=== PATIENT | male | born 1950 | race Caucasian/White ===

== ENCOUNTER 2018-06-26 16:08 | Inpatient (IN) | payer MEDICAID ==
[2018-06-26 18:06] LABS: ADD MAN DIFF? NO
[2018-06-26 18:10] LABS: WHITE BLOOD COUNT 9.4 10^3/ul (4.8-10.8)
[2018-06-26 18:10] LABS: BASOPHILS % 0.3 % (0.0-2.0); EOSINOPHILS # 0.2 10^3/ul (0.0-0.5); EOSINOPHILS % 1.6 % (0.0-7.0); HEMOGLOBIN 13.9 g/dl (14.0-18.0); LYMPHOCYTES # 1.9 10^3/ul (0.8-2.9); LYMPHOCYTES % 20.2 % (15.0-51.0); MEAN CORPUSCULAR HEMOGLOBIN 28.9 pg (29.0-33.0); MEAN CORPUSCULAR HGB CONC 34.8 g/dl (32.0-37.0); MEAN CORPUSCULAR VOLUME 83.2 fl (82.0-101.0); MONOCYTE # 0.9 10^3/ul (0.3-0.9); MONOCYTES % 9.6 % (0.0-11.0); NEUTROPHIL # 6.4 10^3/ul (1.6-7.5); PLATELET COUNT 191 10^3/UL (140-415); RED BLOOD COUNT 4.81 10^6/ul (4.70-6.10); RED CELL DISTRIBUTION WIDTH 11.7 % (11.5-14.5)
[2018-06-26 18:20] LABS: ALANINE AMINOTRANSFERASE 23 IU/L (13-69); ALBUMIN/GLOBULIN RATIO 1.14; ALKALINE PHOSPHATASE 150 IU/L (42-121); ANION GAP 9 (5-13); ASPARTATE AMINO TRANSFERASE 29 IU/L (15-46); BILIRUBIN,INDIRECT 0.1 mg/dl (0-1.1); BILIRUBIN,TOTAL 0.1 mg/dl (0.2-1.3); BLOOD UREA NITROGEN 24 mg/dl (7-20); CALCIUM 9.5 mg/dl (8.4-10.2); CARBON DIOXIDE 27 mmol/L (21-31); CHLORIDE 95 mmol/L (97-110); CREATININE 0.92 mg/dl (0.61-1.24); Estimated GFR > 60 mL/min (>60); POTASSIUM 4.4 mmol/L (3.5-5.1); SODIUM 131 mmol/L (135-144); TOTAL PROTEIN 7.5 g/dl (6.1-8.1)
[2018-06-26 18:35] LABS: C-REACTIVE PROTEIN 2.3 mg/dl (0.0-0.9)
[2018-06-26 18:39] LABS: GLUCOSE 452 mg/dl (70-220)
[2018-06-26] MEDS ORDERED: INSULIN REGULAR, HUMAN 100 UNIT/1 ML 3ML VIAL IVP (18:40)
[2018-06-26 18:42] LABS: INR 0.87; PROTIME 11.9 Sec (11.9-14.9); PT RATIO 0.9
[2018-06-26 18:43] LABS: PARTIAL THROMBOPLASTIN TIME 22.5 Sec (23.0-35.0)
[2018-06-26] MEDS ORDERED: DEXTROSE 50% 50 ML SYRINGE IV (19:00)
[2018-06-26 19:15] LABS: ERYTHROCYTE SEDIMENTATION RATE 50 mm/Hr (0-20)
[2018-06-26] MEDS: SOD CHLORIDE 0.9% 1,000 ML IV (19:24)
[2018-06-26] MEDS: INSULIN REGULAR, HUMAN 100 UNIT/1 ML 3ML VIAL SC (19:27)
[2018-06-26] MEDS: CEFEPIME 2GM/50 ML (PMX) 50 ML IVPB (22:08)
[2018-06-26 22:30] LABS: LACTIC ACID 1.1 mmol/L (0.5-2.0)
[2018-06-26] MEDS: VANCOMYCIN 1 GM (PMX) 250 ML IVPB (22:39)
[2018-06-27] MEDS ORDERED: ACETAMINOPHEN 325 MG TAB PO
[2018-06-27] MEDS ORDERED: ONDANSETRON 4 MG INJ IV
[2018-06-27] MEDS: hydrALAzine 20 MG INJ IV ×2 (03:57→21:53)
[2018-06-27] MEDS ORDERED: GLUCAGON 1 MG INJ IM (04:30)
[2018-06-27] MEDS ORDERED: DEXTROSE 50% 50 ML SYRINGE IV ×2 (04:30)
[2018-06-27] MEDS ORDERED: GLUCOSE GEL 15 GRAM TUBE PO ×2 (04:30)
[2018-06-27] MEDS ORDERED: GLUCOSE GEL 15 GRAM TUBE BUCCAL (04:30)
[2018-06-27] MEDS ORDERED: NACL 0.9% 3 ML SYG IV (04:30)
[2018-06-27] MEDS ORDERED: VANCOMYCIN IV PER PHARMACY XX (04:30)
[2018-06-27] MEDS: SOD CHLORIDE 0.9% 1,000 ML IV (05:07)
[2018-06-27 06:20] LABS: ADD MAN DIFF? NO
[2018-06-27 06:33] LABS: BASOPHILS % 0.5 % (0.0-2.0); EOSINOPHILS # 0.2 10^3/ul (0.0-0.5); EOSINOPHILS % 2.4 % (0.0-7.0); HEMATOCRIT 35.3 % (42.0-52.0); HEMOGLOBIN 12.3 g/dl (14.0-18.0); LYMPHOCYTES # 1.9 10^3/ul (0.8-2.9); LYMPHOCYTES % 21.7 % (15.0-51.0); MEAN CORPUSCULAR HEMOGLOBIN 29.1 pg (29.0-33.0); MEAN CORPUSCULAR HGB CONC 34.8 g/dl (32.0-37.0); MEAN CORPUSCULAR VOLUME 83.5 fl (82.0-101.0); MEAN PLATELET VOLUME 11.8 fl (7.4-10.4); MONOCYTE # 0.8 10^3/ul (0.3-0.9); MONOCYTES % 9.1 % (0.0-11.0); NEUTROPHIL # 5.7 10^3/ul (1.6-7.5); NEUTROPHILS % 65.8 % (39.0-77.0); PLATELET COUNT 156 10^3/UL (140-415); RED BLOOD COUNT 4.23 10^6/ul (4.70-6.10); RED CELL DISTRIBUTION WIDTH 11.7 % (11.5-14.5)
[2018-06-27 06:33] LABS: WHITE BLOOD COUNT 8.6 10^3/ul (4.8-10.8)
[2018-06-27 07:08] LABS: ALANINE AMINOTRANSFERASE 27 IU/L (13-69); ALBUMIN/GLOBULIN RATIO 0.96; ALKALINE PHOSPHATASE 75 IU/L (42-121); ANION GAP 9 (5-13); ASPARTATE AMINO TRANSFERASE 18 IU/L (15-46); BILIRUBIN,INDIRECT 0.3 mg/dl (0-1.1); BILIRUBIN,TOTAL 0.3 mg/dl (0.2-1.3); BLOOD UREA NITROGEN 17 mg/dl (7-20); CALCIUM 8.6 mg/dl (8.4-10.2); CARBON DIOXIDE 28 mmol/L (21-31); CHLORIDE 98 mmol/L (97-110); CHOLESTEROL 131 mg/dl (100-200); CREATININE 0.89 mg/dl (0.61-1.24); Estimated GFR > 60 mL/min (>60); GLUCOSE 310 mg/dl (70-220); HDL CHOLESTEROL 26 mg/dl (30-78); LDL CHOLESTEROL,CALCULATED 80 mg/dl; MAGNESIUM 1.4 mg/dl (1.7-2.5); POTASSIUM 3.9 mmol/L (3.5-5.1); SODIUM 135 mmol/L (135-144); TOTAL PROTEIN 6.1 g/dl (6.1-8.1); TRIGLYCERIDES 123 mg/dl (0-149)
[2018-06-27] MEDS: INSULIN ASPART [NOVOLOG] 3 ML PEN SC ×4 (08:00→20:48)
[2018-06-27] MEDS: CEFEPIME 1GM/50 ML (PMX) 50 ML IVPB ×2 (08:18→20:48)
[2018-06-27] MEDS: VANCOMYCIN 1 GM 250 ML IVPB ×2 (10:08→21:51)
[2018-06-27] MEDS: ACCU-CHEK XX ×3 (11:30→20:48)
[2018-06-27 12:25] LABS: HEMOGLOBIN A1C 11.9 % (0-5.9)
[2018-06-27] MEDS: NATEGLINIDE 120 MG TAB PO ×2 (12:31→17:29)
[2018-06-27] MEDS: metFORMIN 850 MG TAB PO ×2 (12:31→17:28)
[2018-06-28] MEDS ORDERED: traZODone 50 MG TAB PO (00:40)
[2018-06-28] MEDS: ACCU-CHEK XX ×5 (02:00→21:06)
[2018-06-28] MEDS: NATEGLINIDE 120 MG TAB PO ×3 (08:09→17:40)
[2018-06-28] MEDS: GENTAMICIN 0.1% 15 GM OINT TOP (08:09)
[2018-06-28] MEDS: SODIUM HYPOCHLORITE (1/40) 1 APPLIC BTL IRR (08:09)
[2018-06-28] MEDS: metFORMIN 850 MG TAB PO ×2 (08:09→17:40)
[2018-06-28] MEDS: CEFEPIME 1GM/50 ML (PMX) 50 ML IVPB ×2 (08:09→21:03)
[2018-06-28] MEDS: INSULIN ASPART [NOVOLOG] 3 ML PEN SC ×4 (08:11→21:00)
[2018-06-28 09:35] LABS: VANCOMYCIN,TROUGH 9.4 ug/ml (10.0-20.0)
[2018-06-28] MEDS: VANCOMYCIN 1 GM 250 ML IVPB (09:56)
[2018-06-28] MEDS: LISINOPRIL 10 MG TAB PO (09:57)
[2018-06-28] MEDS ORDERED: SOD CHLORIDE 0.45% 1,000 ML IV (10:00)
[2018-06-28] MEDS: HYDROCODONE/APAP (5/325) TAB PO ×2 (10:09→21:42)
[2018-06-28] MEDS: ATORVASTATIN 10 MG TAB PO (21:06)
[2018-06-28] MEDS: VANCOMYCIN HCL 1.25 GM in SOD CHLORIDE 0.9% 250 ML IVPB (21:42)
[2018-06-29] MEDS: ACCU-CHEK XX ×5 (02:00→20:20)
[2018-06-29 06:01] LABS: ADD MAN DIFF? NO
[2018-06-29 06:04] LABS: BASOPHILS % 0.4 % (0.0-2.0); EOSINOPHILS # 0.3 10^3/ul (0.0-0.5); EOSINOPHILS % 3.3 % (0.0-7.0); HEMATOCRIT 35.9 % (42.0-52.0); HEMOGLOBIN 12.5 g/dl (14.0-18.0); LYMPHOCYTES % 21.9 % (15.0-51.0); MEAN CORPUSCULAR HEMOGLOBIN 29.6 pg (29.0-33.0); MEAN CORPUSCULAR HGB CONC 34.8 g/dl (32.0-37.0); MEAN CORPUSCULAR VOLUME 84.9 fl (82.0-101.0); MEAN PLATELET VOLUME 11.9 fl (7.4-10.4); MONOCYTES % 10.8 % (0.0-11.0); NEUTROPHIL # 5.7 10^3/ul (1.6-7.5); NEUTROPHILS % 63.4 % (39.0-77.0); PLATELET COUNT 167 10^3/UL (140-415); RED BLOOD COUNT 4.23 10^6/ul (4.70-6.10); RED CELL DISTRIBUTION WIDTH 11.8 % (11.5-14.5)
[2018-06-29 06:28] LABS: IRON 63 ug/dl (35-150)
[2018-06-29 06:33] LABS: ALANINE AMINOTRANSFERASE 19 IU/L (13-69); ALBUMIN 3.2 g/dl (3.3-4.9); ALKALINE PHOSPHATASE 59 IU/L (42-121); ANION GAP 12 (5-13); ASPARTATE AMINO TRANSFERASE 19 IU/L (15-46); BILIRUBIN,INDIRECT 0.4 mg/dl (0-1.1); BILIRUBIN,TOTAL 0.4 mg/dl (0.2-1.3); BLOOD UREA NITROGEN 18 mg/dl (7-20); CALCIUM 8.8 mg/dl (8.4-10.2); CARBON DIOXIDE 26 mmol/L (21-31); CHLORIDE 100 mmol/L (97-110); CREATININE 0.81 mg/dl (0.61-1.24); Estimated GFR > 60 mL/min (>60); GLUCOSE 132 mg/dl (70-220); POTASSIUM 4.4 mmol/L (3.5-5.1); SODIUM 138 mmol/L (135-144); TOTAL PROTEIN 6.4 g/dl (6.1-8.1)
[2018-06-29 06:39] LABS: % IRON SATURATION 23 % SAT (22-52); TOTAL IRON BINDING CAPACITY 273 ug/dl (241-421)
[2018-06-29] MEDS: NATEGLINIDE 120 MG TAB PO ×3 (08:01→17:36)
[2018-06-29] MEDS: metFORMIN 850 MG TAB PO ×2 (08:01→17:38)
[2018-06-29] MEDS: INSULIN ASPART [NOVOLOG] 3 ML PEN SC ×4 (08:02→20:20)
[2018-06-29] MEDS: LISINOPRIL 10 MG TAB PO (08:03)
[2018-06-29] MEDS: CEFEPIME 1GM/50 ML (PMX) 50 ML IVPB ×2 (08:04→20:15)
[2018-06-29] MEDS: GENTAMICIN 0.1% 15 GM OINT TOP (08:06)
[2018-06-29] MEDS: SODIUM HYPOCHLORITE (1/40) 1 APPLIC BTL IRR (08:06)
[2018-06-29] MEDS: VANCOMYCIN HCL 1.25 GM in SOD CHLORIDE 0.9% 250 ML IVPB ×2 (09:29→22:22)
[2018-06-29] MEDS: HYDROCODONE/APAP (5/325) TAB PO ×2 (09:29→20:14)
[2018-06-29] MEDS: morphine 2 MG INJ IV (10:52)
[2018-06-29] MEDS: hydrALAzine 20 MG INJ IV ×2 (15:29→20:21)
[2018-06-29] MEDS: ONDANSETRON 4 MG INJ IV (18:48)
[2018-06-29] MEDS: ATORVASTATIN 10 MG TAB PO (20:14)
[2018-06-30] MEDS: ACCU-CHEK XX ×5 (02:00→21:42)
[2018-06-30] MEDS: INSULIN ASPART [NOVOLOG] 3 ML PEN SC ×4 (08:14→20:26)
[2018-06-30] MEDS: metFORMIN 850 MG TAB PO ×2 (08:17→18:19)
[2018-06-30] MEDS: ENOXAPARIN 40 MG/0.4 ML SYG SC (08:17)
[2018-06-30] MEDS: CEFEPIME 1GM/50 ML (PMX) 50 ML IVPB ×2 (08:17→20:31)
[2018-06-30] MEDS: NATEGLINIDE 120 MG TAB PO ×3 (08:18→18:18)
[2018-06-30] MEDS: LISINOPRIL 20 MG TAB PO (08:19)
[2018-06-30] MEDS: GENTAMICIN 0.1% 15 GM OINT TOP (08:20)
[2018-06-30] MEDS: SODIUM HYPOCHLORITE (1/40) 1 APPLIC BTL IRR (08:21)
[2018-06-30] MEDS: VANCOMYCIN HCL 1.25 GM in SOD CHLORIDE 0.9% 250 ML IVPB (10:55)
[2018-06-30] MEDS: ASPIRIN (EC) 81 MG TAB PO (13:40)
[2018-06-30] MEDS ORDERED: morphine LIQ (10 MG/5 ML) CUP PO (16:30)
[2018-06-30] MEDS: ATORVASTATIN 10 MG TAB PO (20:25)
[2018-06-30] MEDS: ACETAMINOPHEN 325 MG TAB PO (20:25)
[2018-06-30 22:29] LABS: VANCOMYCIN,TROUGH 20.1 ug/ml (10.0-20.0)
[2018-06-30] MEDS: VANCOMYCIN 1 GM 250 ML IVPB (22:52)
[2018-07-01] MEDS: ACCU-CHEK XX ×5 (01:48→20:57)
[2018-07-01 06:18] LABS: BLOOD UREA NITROGEN 32 mg/dl (7-20)
[2018-07-01 06:18] LABS: CREATININE 1.09 mg/dl (0.61-1.24)
[2018-07-01] MEDS: INSULIN ASPART [NOVOLOG] 3 ML PEN SC ×4 (08:00→20:56)
[2018-07-01] MEDS: CEFEPIME 1GM/50 ML (PMX) 50 ML IVPB (08:30)
[2018-07-01] MEDS: NATEGLINIDE 120 MG TAB PO ×3 (08:31→17:53)
[2018-07-01] MEDS: GENTAMICIN 0.1% 15 GM OINT TOP (08:32)
[2018-07-01] MEDS: ASPIRIN (EC) 81 MG TAB PO (08:32)
[2018-07-01] MEDS: LISINOPRIL 20 MG TAB PO (08:32)
[2018-07-01] MEDS: SODIUM HYPOCHLORITE (1/40) 1 APPLIC BTL IRR (08:33)
[2018-07-01] MEDS: ENOXAPARIN 40 MG/0.4 ML SYG SC (08:33)
[2018-07-01] MEDS: metFORMIN 850 MG TAB PO ×2 (08:40→17:54)
[2018-07-01] MEDS: VANCOMYCIN 1 GM 250 ML IVPB (11:45)
[2018-07-01] MEDS: ONDANSETRON 4 MG INJ IV (13:24)
[2018-07-01] MEDS ORDERED: AL HYDROX/MG HYDROX/SIMETH 30 ML CUP PO (13:30)
[2018-07-01 14:16] LABS: ADD MAN DIFF? NO
[2018-07-01 14:18] LABS: BASOPHIL # 0.1 10^3/ul (0.0-0.1); BASOPHILS % 0.6 % (0.0-2.0); EOSINOPHILS # 0.1 10^3/ul (0.0-0.5); EOSINOPHILS % 1.4 % (0.0-7.0); HEMATOCRIT 37.9 % (42.0-52.0); HEMOGLOBIN 13.1 g/dl (14.0-18.0); LYMPHOCYTES # 1.4 10^3/ul (0.8-2.9); LYMPHOCYTES % 15.4 % (15.0-51.0); MEAN CORPUSCULAR HEMOGLOBIN 28.9 pg (29.0-33.0); MEAN CORPUSCULAR HGB CONC 34.6 g/dl (32.0-37.0); MEAN CORPUSCULAR VOLUME 83.5 fl (82.0-101.0); MEAN PLATELET VOLUME 11.4 fl (7.4-10.4); MONOCYTE # 0.9 10^3/ul (0.3-0.9); MONOCYTES % 9.5 % (0.0-11.0); NEUTROPHIL # 6.6 10^3/ul (1.6-7.5); NEUTROPHILS % 72.8 % (39.0-77.0); PLATELET COUNT 215 10^3/UL (140-415); RED BLOOD COUNT 4.54 10^6/ul (4.70-6.10); RED CELL DISTRIBUTION WIDTH 11.7 % (11.5-14.5)
[2018-07-01 14:48] LABS: ALBUMIN 3.5 g/dl (3.3-4.9); ANION GAP 7 (5-13); BLOOD UREA NITROGEN 31 mg/dl (7-20); C-REACTIVE PROTEIN 4.5 mg/dl (0.0-0.9); CALCIUM 9.2 mg/dl (8.4-10.2); CARBON DIOXIDE 29 mmol/L (21-31); CHLORIDE 102 mmol/L (97-110); CREATININE 0.98 mg/dl (0.61-1.24); GLUCOSE 83 mg/dl (70-220); PHOSPHORUS 3.9 mg/dl (2.5-4.9); SODIUM 138 mmol/L (135-144)
[2018-07-01 15:29] LABS: ERYTHROCYTE SEDIMENTATION RATE 60 mm/Hr (0-20)
[2018-07-01] MEDS: ATORVASTATIN 10 MG TAB PO (20:54)
[2018-07-01] MEDS: ACETAMINOPHEN 325 MG TAB PO (22:16)
[2018-07-02] MEDS: ACCU-CHEK XX ×6 (02:00→22:12)
[2018-07-02] MEDS: INSULIN ASPART [NOVOLOG] 3 ML PEN SC ×4 (08:00→22:12)
[2018-07-02] MEDS: LISINOPRIL 20 MG TAB PO (08:09)
[2018-07-02] MEDS: NATEGLINIDE 120 MG TAB PO ×3 (08:09→17:39)
[2018-07-02] MEDS: ASPIRIN (EC) 81 MG TAB PO (08:09)
[2018-07-02] MEDS: metFORMIN 850 MG TAB PO ×2 (08:10→17:39)
[2018-07-02] MEDS: SODIUM HYPOCHLORITE (1/40) 1 APPLIC BTL IRR (08:15)
[2018-07-02] MEDS: ENOXAPARIN 40 MG/0.4 ML SYG SC (08:15)
[2018-07-02] MEDS: GENTAMICIN 0.1% 15 GM OINT TOP (08:15)
[2018-07-02] MEDS: hydrALAzine 20 MG INJ IV (22:08)
[2018-07-02] MEDS: ATORVASTATIN 10 MG TAB PO (22:09)
[2018-07-03] MEDS: ACCU-CHEK XX ×4 (07:00→21:00)
[2018-07-03] MEDS: INSULIN ASPART [NOVOLOG] 3 ML PEN SC ×4 (08:00→21:00)
[2018-07-03] MEDS: ASPIRIN (EC) 81 MG TAB PO (08:05)
[2018-07-03] MEDS: metFORMIN 850 MG TAB PO ×2 (08:05→17:24)
[2018-07-03] MEDS: NATEGLINIDE 120 MG TAB PO ×3 (08:05→17:24)
[2018-07-03] MEDS: LISINOPRIL 20 MG TAB PO (08:06)
[2018-07-03] MEDS: ENOXAPARIN 40 MG/0.4 ML SYG SC (08:07)
[2018-07-03] MEDS: GENTAMICIN 0.1% 15 GM OINT TOP (08:08)
[2018-07-03] MEDS: SODIUM HYPOCHLORITE (1/40) 1 APPLIC BTL IRR (08:08)
[2018-07-03] MEDS: HYDROCODONE/APAP (5/325) TAB PO (12:51)
[2018-07-03] MEDS: hydrALAzine 20 MG INJ IV ×2 (13:48→21:45)
[2018-07-03] MEDS: ATORVASTATIN 10 MG TAB PO (21:46)
[2018-07-03] MEDS: ACETAMINOPHEN 325 MG TAB PO (21:46)
[2018-07-04] MEDS: ACCU-CHEK XX ×4 (07:00→20:45)
[2018-07-04] MEDS: INSULIN ASPART [NOVOLOG] 3 ML PEN SC ×4 (08:00→20:44)
[2018-07-04] MEDS: NATEGLINIDE 120 MG TAB PO ×3 (08:22→17:36)
[2018-07-04] MEDS: metFORMIN 850 MG TAB PO ×2 (08:22→17:36)
[2018-07-04] MEDS: LISINOPRIL 20 MG TAB PO (08:23)
[2018-07-04] MEDS: ASPIRIN (EC) 81 MG TAB PO (08:23)
[2018-07-04] MEDS: ENOXAPARIN 40 MG/0.4 ML SYG SC (08:25)
[2018-07-04] MEDS: GENTAMICIN 0.1% 15 GM OINT TOP (08:28)
[2018-07-04] MEDS: SODIUM HYPOCHLORITE (1/40) 1 APPLIC BTL IRR (08:28)
[2018-07-04] MEDS: HYDROCODONE/APAP (5/325) TAB PO ×2 (14:15→20:44)
[2018-07-04] MEDS: ACETAMINOPHEN 325 MG TAB PO (17:18)
[2018-07-04] MEDS: hydrALAzine 20 MG INJ IV (20:43)
[2018-07-04] MEDS: ATORVASTATIN 10 MG TAB PO (20:44)
[2018-07-05] MEDS: ACCU-CHEK XX ×4 (07:00→20:25)
[2018-07-05] MEDS: INSULIN ASPART [NOVOLOG] 3 ML PEN SC ×4 (08:00→20:26)
[2018-07-05] MEDS: NATEGLINIDE 120 MG TAB PO ×3 (08:05→17:17)
[2018-07-05] MEDS: metFORMIN 850 MG TAB PO ×2 (08:05→17:17)
[2018-07-05] MEDS: ASPIRIN (EC) 81 MG TAB PO (08:05)
[2018-07-05] MEDS: LISINOPRIL 20 MG TAB PO (08:06)
[2018-07-05] MEDS: ENOXAPARIN 40 MG/0.4 ML SYG SC (08:08)
[2018-07-05] MEDS: GENTAMICIN 0.1% 15 GM OINT TOP (08:09)
[2018-07-05] MEDS: SODIUM HYPOCHLORITE (1/40) 1 APPLIC BTL IRR (08:09)
[2018-07-05] MEDS: HYDROCODONE/APAP (5/325) TAB PO (13:39)
[2018-07-05] MEDS: ONDANSETRON 4 MG INJ IV (13:41)
[2018-07-05] MEDS: hydrALAzine 20 MG INJ IV ×2 (15:28→20:20)
[2018-07-05] MEDS: ATORVASTATIN 10 MG TAB PO (20:20)
[2018-07-06] MEDS: INSULIN ASPART [NOVOLOG] 3 ML PEN SC ×6 (01:00→20:03)
[2018-07-06] MEDS: HYDROCODONE/APAP (5/325) TAB PO ×3 (01:17→20:00)
[2018-07-06] MEDS: ACCU-CHEK XX ×4 (06:50→20:00)
[2018-07-06] MEDS: NATEGLINIDE 120 MG TAB PO ×3 (07:00→17:42)
[2018-07-06] MEDS ORDERED: IODIXANOL LOCM 100 ML BTL ×2 (07:27→08:09)
[2018-07-06] MEDS ORDERED: LIDOCAINE 1% (MDV) 20 ML INJ (07:27)
[2018-07-06] MEDS ORDERED: HEPARIN 1000 UNITS/ML 10 ML INJ (08:09)
[2018-07-06] MEDS: ENOXAPARIN 40 MG/0.4 ML SYG SC (09:00)
[2018-07-06] MEDS: CLOPIDOGREL 75 MG TAB PO ×2 (09:00→12:21)
[2018-07-06] MEDS: LISINOPRIL 20 MG TAB PO (09:03)
[2018-07-06] MEDS: metFORMIN 850 MG TAB PO ×2 (09:03→17:42)
[2018-07-06] MEDS: ASPIRIN (EC) 81 MG TAB PO (09:03)
[2018-07-06] MEDS: SODIUM HYPOCHLORITE (1/40) 1 APPLIC BTL IRR (09:05)
[2018-07-06] MEDS: GENTAMICIN 0.1% 15 GM OINT TOP (09:05)
[2018-07-06] MEDS ORDERED: EPINEPHrine 0.1 MG/ML SYG (10:13)
[2018-07-06] MEDS ORDERED: EPHEDrine SULFATE 50 MG/5 ML SYG (10:15)
[2018-07-06] MEDS ORDERED: DOPamine-D5W 1.6 MG/ML 250 ML (10:38)
[2018-07-06] MEDS ORDERED: NA BICARBONATE 8.4% 50 ML SYG (10:38)
[2018-07-06] MEDS ORDERED: BIVALIRUDIN 250MG /NS 50 ML 100 ML IVPB (10:38)
[2018-07-06] MEDS ORDERED: NORepinephrine 8MG/250 ML (PMX 250 ML (10:39)
[2018-07-06] MEDS ORDERED: EPTIFIBATIDE 100 ML IV (10:56)
[2018-07-06] MEDS ORDERED: EPTIFIBATIDE 20 ML (10:56)
[2018-07-06] MEDS: hydrALAzine 20 MG INJ IV (19:59)
[2018-07-06] MEDS: ATORVASTATIN 10 MG TAB PO (20:00)
[2018-07-06] MEDS ORDERED: INSULIN ASPART [NOVOLOG] 3 ML PEN SC (21:00)
[2018-07-06] MEDS: ONDANSETRON 4 MG INJ IV (22:55)
[2018-07-07] MEDS: ACCU-CHEK XX ×3 (07:00→18:02)
[2018-07-07] MEDS: CLOPIDOGREL 75 MG TAB PO (08:56)
[2018-07-07] MEDS: LISINOPRIL 20 MG TAB PO (08:57)
[2018-07-07] MEDS: ASPIRIN (EC) 81 MG TAB PO (08:58)
[2018-07-07] MEDS: NATEGLINIDE 120 MG TAB PO ×3 (08:58→18:02)
[2018-07-07] MEDS: metFORMIN 850 MG TAB PO ×2 (08:58→18:02)
[2018-07-07] MEDS: GENTAMICIN 0.1% 15 GM OINT TOP (08:59)
[2018-07-07] MEDS: SODIUM HYPOCHLORITE (1/40) 1 APPLIC BTL IRR (08:59)
[2018-07-07] MEDS: ENOXAPARIN 40 MG/0.4 ML SYG SC (09:01)
[2018-07-07] MEDS: INSULIN ASPART [NOVOLOG] 3 ML PEN SC ×3 (09:01→17:30)
[2018-07-07] MEDS: ONDANSETRON 4 MG INJ IV (13:47)
== END 2018-07-07 20:15 | disposition home or self-care (01) | DRG 253 ==
LOC: 2NE 23:36 → FTE 16:08
PROVIDERS: Internal Medicine
PROC: 047P3ZZ Dilation of Right Anterior Tibial Artery, Percutaneous Approach (ICD-10-PCS; principal; 2018-07-06 07:09)
PROC: 0JBQ0ZZ Excision of Right Foot Subcutaneous Tissue and Fascia, Open Approach (ICD-10-PCS; 2018-07-06 07:09)
PROC: 047T3ZZ Dilation of Right Peroneal Artery, Percutaneous Approach (ICD-10-PCS; 2018-07-06 07:09)
PROC: B41DYZZ Fluoroscopy of Aorta and Bilateral Lower Extremity Arteries using Other Contrast (ICD-10-PCS; 2018-07-06 07:09)
DX: E11.52 Type 2 diabetes mellitus with diabetic peripheral angiopathy with gangrene (principal); I96 Gangrene, not elsewhere classified; M86.9 Osteomyelitis, unspecified; E11.621 Type 2 diabetes mellitus with foot ulcer; E11.65 Type 2 diabetes mellitus with hyperglycemia; Z79.84 Long term (current) use of oral hypoglycemic drugs; E11.69 Type 2 diabetes mellitus with other specified complication; I10 Essential (primary) hypertension; L03.031 Cellulitis of right toe; D64.9 Anemia, unspecified; E78.5 Hyperlipidemia, unspecified; E11.42 Type 2 diabetes mellitus with diabetic polyneuropathy
CPT/HCPCS: 36415; 73620; 73630; 73718; 75630; 80053; 80061; 80069; 80202; 82565; 82728; 82962; 83036; 83540; 83605; 83735; 84443; 84520; 85025; 85610; 85651; 85730; 86140; 87040; 87070; 93922; 96361; 96365; 96367; 96372; 99285-25